=== PATIENT | female | born 1975 | race Caucasian/White ===

== ENCOUNTER 2020-12-21 19:10 | Inpatient (IN) | payer BC, OTHER ==
[~2020-12-21] VITALS: Ht 165.1 cm; Wt 80.8 kg
[2020-12-21] MEDS ORDERED: IOVERSOL 350 MG/ML 100 ML VIAL ONE (19:28)
[2020-12-21] MEDS ORDERED: SODIUM CHLORIDE 0.9% 100 ML ONE (19:28)
[2020-12-21] MEDS ORDERED: DiphenhydrAMINE HCL 50 MG/ML VIAL IVP ONE (19:30)
[2020-12-21 19:44] LABS: BASOPHILS % (AUTO) 0.3 % (0.0-2.0); EOSINOPHILS % (AUTO) 0.2 % (1.0-6.0); HEMATOCRIT 38.3 % (36-46); HEMOGLOBIN 12.8 g/dL (12.0-16.0); LYMPHOCYTES # (AUTO) 1.5 K/uL (1.0-4.8); LYMPHOCYTES % (AUTO) 14.2 % (22.0-44.0); MEAN CORPUSCULAR HGB CONC 33.3 G/dL (31.0-37.0); MEAN CORPUSCULAR VOLUME 87 fL (80-100); MONOCYTES # (AUTO) 0.2 K/uL (0.1-1.0); MONOCYTES % (AUTO) 1.8 % (2.0-9.0); NEUTROPHILS # (AUTO) 8.6 K/uL (1.8-7.7); NEUTROPHILS % (AUTO) 83.5 % (40.0-70.0); PLATELET COUNT (AUTO) 390 K/uL (150-450); RED CELL DISTRIBUTION WIDTH 14.6 % (11.5-14.5)
[2020-12-21 19:53] LABS: ANION GAP 13 mmol/L (8-16); CARBON DIOXIDE 23 mmol/L (22-29); CHLORIDE 104 mmol/L (98-107); CREATININE 0.81 mg/dL (0.60-1.30); GLOMERULAR FILTR. RATE CALC > 60 mL/min (>60); GLUCOSE,RANDOM 103 mg/dL (70-110); POTASSIUM 3.5 mmol/L (3.5-5.1); SODIUM SERUM 140 mmol/L (136-145); UREA NITROGEN, BLOOD 12 mg/dL (7-18)
[2020-12-21 19:56] LABS: PROTHROMBIN TIME 10.3 SEC (9.4-11.6)
[2020-12-21] MEDS ORDERED: LORazepam 2 MG/ML VIAL IVP ONE (20:00)
[2020-12-21 20:04] LABS: ALANINE AMINOTRANSFERASE 24 U/L (12-78); ALBUMIN 3.8 g/dL (3.4-5.0); ALKALINE PHOSPHATASE 64 U/L (46-116); ASPARTATE AMINOTRANSFERASE 24 U/L (15-37); BILIRUBIN,TOTAL 0.4 mg/dL (0.1-1.0); HCG,QUANTITATIVE < 1 mIU/mL (0-6); TOTAL PROTEIN, SERUM 7.9 g/dL (6.4-8.2)
[2020-12-21] MEDS ORDERED: ONDANSETRON HCL 4 MG/2 ML VIAL IVP PRN (20:30)
[2020-12-21] MEDS ORDERED: 0.9% SODIUM CHLORIDE 10 ML SYRINGE IVP PRN (20:30)
[2020-12-21] MEDS ORDERED: ACETAMINOPHEN 325 MG TABLET PO PRN ×2 (20:30→20:45)
[2020-12-21] MEDS ORDERED: PRED1 PO (20:31)
[2020-12-21] MEDS ORDERED: MAGNESIUM HYDROXIDE SUSPENSION 30 ML UDCUP PO PRN (20:45)
[2020-12-21 20:46] LABS: COVID AG,FIA SOURCE NASOPHARYNGEAL
[2020-12-21] MEDS: ASPIRIN 81 MG CHEWABLE TABLET PO SCH (20:48)
[2020-12-21] MEDS ORDERED: LORazepam 2 MG/ML VIAL IVP PRN (21:00)
[2020-12-21 21:05] LABS: THYROID STIMULATING HORMONE 0.95 uIU/mL (0.36-3.74)
[2020-12-21 21:06] LABS: ACETAMINOPHEN < 2 mcg/mL (10-30)
[2020-12-21 21:44] LABS: SALICYLATE 1.6 mg/dL (2.8-20.0)
[2020-12-21 22:18] VITALS: BP 133/71
[2020-12-21] MEDS ORDERED: MORPHINE SULFATE 2 MG/ML SYRINGE IVP ONE (22:45)
[2020-12-21 23:31] VITALS: BP 154/76
[2020-12-21] MEDS: HEPARIN SODIUM,PORCINE 5,000 UNITS/ML VIAL SQ SCH (23:40)
[2020-12-22] MEDS ORDERED: MORPHINE SULFATE 2 MG/ML SYRINGE IVP PRN (00:15)
[2020-12-22] MEDS ORDERED: LORazepam 2 MG/ML VIAL IVP PRN (01:00)
[2020-12-22] MEDS ORDERED: HYDROmorphone 2 MG/ML VIAL ONE (01:59)
[2020-12-22] MEDS: HYDROmorphone 2 MG/ML VIAL IVP PRN ×3 (02:17→12:28)
[2020-12-22 03:17] VITALS: BP 145/70
[2020-12-22 07:30] VITALS: BP 156/77
[2020-12-22] MEDS ORDERED: FAMOTIDINE 20 MG TABLET PO SCH (09:00)
[2020-12-22] MEDS: HEPARIN SODIUM,PORCINE 5,000 UNITS/ML VIAL SQ SCH ×2 (09:19→16:00)
[2020-12-22] MEDS: ASPIRIN 81 MG CHEWABLE TABLET PO SCH (09:19)
[2020-12-22 11:30] VITALS: BP 148/76
[2020-12-22 16:03] VITALS: BP 125/71
== END 2020-12-22 17:35 | disposition left against medical advice (07) | DRG 54 ==
LOC: EMS 19:10 → 5S 20:39
PROVIDERS: ADMIT Internal Medicine; ATTEND Internal Medicine
DX: G43.909 Migraine, unspecified, not intractable, without status migrainosus (principal); M54.81 Occipital neuralgia; G93.40 Encephalopathy, unspecified; Z53.29 Procedure and treatment not carried out because of patient's decision for other reasons; J45.909 Unspecified asthma, uncomplicated; R00.1 Bradycardia, unspecified; Z20.822 Contact with and (suspected) exposure to COVID-19
CPT/HCPCS: 70496; 70551; 84443; 87426; 92610; 93005; 93306; 97162; 97530; 99291; G0480; G0481; J1170; J1200; J1644; J2060; J2270; J7050; 36415-L1; 36415-TC; 70450; 70450-TC; 71045-TC